=== PATIENT | female | born 1970 | race American Indian/Alaskan Native ===

== ENCOUNTER 2018-01-19 05:47 | Day surgery (SDC) | payer MEDICARE ==
[2018-01-19] MEDS ORDERED: WATER FOR IRRIG STERILE IR ONE (07:16)
[2018-01-19] MEDS ORDERED: HURRICAINE ONE 20% TOPICAL SPRAY MM (07:45)
--- NOTE | 2018-01-19 07:48 | Anesthesia Day of Surgery ---
Anesthesia Day of Surgery - Day of Surgery Patient Examined: Yes Patient H&P Reviewed: Yes Patient is NPO: Yes
--- NOTE | 2018-01-19 07:48 | Anesthesia Consultation ---
Anesthesia Consult and Med Hx Date of service: 01/19/18 - Airway Anesthetic Teeth Evaluation: Good ROM Head & Neck: Adequate Mental/Hyoid Distance: Adequate Mallampati Class: Class II Intubation Access Assessment: Probably Good - Pulmonary Exam CTA: Yes - Cardiac Exam Cardiac Exam: RRR - Pre-Operative Health Status ASA Pre-Surgery Classification: ASA3 Proposed Anesthetic Plan: MAC - Pulmonary Hx Sleep Apnea: Yes - Gastrointestinal Hx Gastroesophageal Reflux Disease: Yes - Other Systems Hx Cancer: Yes (NON [place]) Hx Obesity: Yes - Additional Comments Anesthesia Medical History Comments: Lupus, RA
[2018-01-19] MEDS ORDERED: NACL 0.9% 1000 ML 1,000 ML IV SCH (08:00)
[2018-01-19] MEDS ORDERED: DIPRIVAN 10 MG/ML IV ONE (08:05)
[2018-01-19] MEDS ORDERED: XYLOCAINE 2% INFILTRATI ONE (08:06)
--- NOTE | 2018-01-19 11:32 | Post Anesthesia Evaluation ---
- Post Anesthesia Evaluation Patient Participated: Yes Airway Patent: Yes Stable Respiratory Function: Yes Nausea/Vomiting: No Temp > 96.8F: Yes Pain Manageable: Yes Adequeate Hydration: Yes Anesthesia Complications: No
[2018-01-19 13:18] VITALS: BP 161/98
== END 2018-01-19 05:48 | disposition home or self-care (01) ==
LOC: GIO 05:47
PROVIDERS: ATTEND Specialist
DX: K21.0 Gastro-esophageal reflux disease with esophagitis (principal); K44.9 Diaphragmatic hernia without obstruction or gangrene; K31.89 Other diseases of stomach and duodenum; E66.01 Morbid (severe) obesity due to excess calories; G47.33 Obstructive sleep apnea (adult) (pediatric); M06.9 Rheumatoid arthritis, unspecified; Z88.2 Allergy status to sulfonamides; Z85.72 Personal history of non-Hodgkin lymphomas; Z91.048 Other nonmedicinal substance allergy status; M32.9 Systemic lupus erythematosus, unspecified; Z68.42 Body mass index [BMI] 45.0-49.9, adult
CPT/HCPCS: 43235; J2704; J7030

== ENCOUNTER 2018-07-16 12:00 | Inpatient (IN) | payer MEDICARE ==
--- NOTE | 2018-07-16 12:22 | Anesthesia Consultation ---
Anesthesia Consult and Med Hx Date of service: 07/16/18 - Airway Anesthetic Teeth Evaluation: Good ROM Head & Neck: Adequate Mental/Hyoid Distance: Adequate Mallampati Class: Class II Intubation Access Assessment: Probably Good - Pulmonary Exam CTA: Yes - Cardiac Exam Cardiac Exam: RRR - Pre-Operative Health Status ASA Pre-Surgery Classification: ASA3 Proposed Anesthetic Plan: General - Pulmonary Hx Pneumonia: Yes (HX) Hx Sleep Apnea: Yes (MILD NO CPAP NEEDED) - Cardiovascular System Hx Hypertension: Yes (OCT 2017. HL) - Central Nervous System Hx Back Pain: Yes - Gastrointestinal Hx Gastroesophageal Reflux Disease: Yes - Hematic Hx Anemia: Yes - Other Systems Hx Cancer: Yes Hx Obesity: Yes (Morbid obesity) - Additional Comments Anesthesia Medical History Comments: Lupus, chronic back pain, diverticulitis. Cardiac clearance on chart.
[2018-07-19] MEDS ORDERED: REGLAN IV PRN (16:05)
[2018-07-19] MEDS ORDERED: MORPHINE IV PRN (16:05)
[2018-07-19] MEDS ORDERED: APRESOLINE IV PRN (16:05)
[2018-07-19] MEDS ORDERED: MYLICON PO PRN (16:05)
[2018-07-19] MEDS ORDERED: NORCO PO PRN (16:05)
[2018-07-19] MEDS ORDERED: FLAGYL 500 MG/100 ML 500 MG/100 ML BAG IV NR (17:00)
[2018-07-19] MEDS ORDERED: ANCEF/STERILE WATER 2 GM/20 ML 2 GM/20 ML SYRINGE IV NR (17:00)
[2018-07-19] MEDS ORDERED: TRANSDERM-SCOP TD SCH (17:00)
[2018-07-19] MEDS ORDERED: LOVENOX SUB-Q NR (17:00)
[2018-07-20] MEDS ORDERED: WATER FOR IRRIG STERILE IR ONE (07:35)
[2018-07-20] MEDS: LACTATED RINGERS 1,000 ML IV SCH ×3 (08:26→21:11)
[2018-07-20 08:53] LABS: Bilirubin,Urine NEG (Negative); Blood,Urine NEG (Negative); Color,Urine Yellow (Yellow); Protein,Urine <15 mg/dL mg/dL (Negative); Urobilinogen,Urine < 2.0 mg/dL (<2.0)
[2018-07-20] MEDS ORDERED: PEPCID IV NR (09:00)
[2018-07-20] MEDS ORDERED: ANCEF/STERILE WATER 2 GM/20 ML IV NR (09:00)
[2018-07-20] MEDS ORDERED: VERSED IV NR (09:00)
--- NOTE | 2018-07-20 09:27 | Anesthesia Day of Surgery ---
Anesthesia Day of Surgery - Day of Surgery Patient Examined: Yes Patient H&P Reviewed: Yes Patient is NPO: Yes
[2018-07-20] MEDS ORDERED: XYLOCAINE MPF 2% ONE (09:44)
[2018-07-20] MEDS ORDERED: DIPRIVAN 10 MG/ML IV ONE (09:45)
[2018-07-20] MEDS ORDERED: SUBLIMAZE ONE (09:45)
[2018-07-20] MEDS ORDERED: NACL 0.9% IR ONE (10:10)
[2018-07-20] MEDS ORDERED: XYLOCAINE 1% 20 mL INFILTRATI ONE (10:10)
[2018-07-20] MEDS ORDERED: MARCAINE-EPI 0.5%-1:200,000 INFILTRATI ONE ×2 (10:10→10:33)
[2018-07-20] MEDS ORDERED: ZOFRAN ONE (10:29)
[2018-07-20] MEDS ORDERED: DECADRON ONE (10:29)
[2018-07-20] MEDS ORDERED: TORADOL ONE (10:30)
[2018-07-20] MEDS ORDERED: BLOXIVERZ ONE (10:30)
[2018-07-20] MEDS ORDERED: QUELICIN ONE (10:30)
[2018-07-20] MEDS ORDERED: ZEMURON IV ONE (10:30)
[2018-07-20] MEDS ORDERED: ROBINUL ONE (10:30)
[2018-07-20] MEDS ORDERED: XYLOCAINE 1% 20 mL ONE (10:33)
[2018-07-20] MEDS ORDERED: ZOFRAN IV PRN (12:52)
--- NOTE | 2018-07-20 13:23 | Operative Report ---
Operative Report Operative Report: OPERATIVE REPORT DATE OF PROCEDURE: 07/20/18 SURGEON: Smooth Henry MD; Vane Dennis MD LABORATORY SUPERVISOR: Yousuf Narvaez CSA PREOPERATIVE DIAGNOSES: 1. Enterogastric reflux 2. Failed or complication of gastrojejunal anastomosis 3. Chronic dyspepsia POSTOPERATIVE DIAGNOSES: Same PROCEDURES PERFORMED: 1. Laparoscopic revision of gastrojejunostomy 2. Biliopancreatic limb lengthening 3. Intraoperative endoscopy 4. Adhesiolysis ANESTHESIA: General. SPECIMENS: None. ESTIMATED BLOOD LOSS: Less than 20 mL. COMPLICATIONS: None. FINDINGS: 1. Adhesions in the pelvis from her prior . 2. Dilated gastric pouch. INDICATION: Patient is a 47 year old female who had a gastric bypass in 2007 and has since began to experience abdominal pain, chronic dyspepsia and weight regain. A recently performed EGD showed the patient had dilation of the gastrojejunostomy and gastric pouch indicating failure. She wished to undergo revision. The risks, complications, and alternatives were explained, and informed consent was obtained. DESCRIPTION OF PROCEDURE: The patient was brought to the operating suite and laid in the supine position. She was given preoperative antibiotics and DVT prophylaxis. General anesthesia was induced and she was prepped and draped in the usual sterile fashion. A time out was called. A small incision was made at the base of the umbilicus and a veress needle was inserted. I could not obtain appropriate insufflation pressures, therefore the Veress was changed to the LUQ with appropriate insufflation pressures of 15 mmHg. A 12mm Optiview trocar was inserted at the umbilicus. No gross injury to any abdominal structures were noted below the site of entry and at the Veress site. An additional 12mm trocar was placed in the right lateral quadrant and two 5 mm ports in the epigastric and right upper quadrant. An additional 5mm trocar was placed in the left upper quadrant. She had an antecolic, antegastric anatomy. We ran the bowel multiple times to ensure we had the appropriate limbs prior to stapling. The florentino limb was identified and then stapled just prior to the biliopancreatic limb at the J-J anastomosis. Hemostasis was obtained with electrocautery. Next the terminal ileum was identified. She had dense adhesions from a prior pelvic operation, and we spent some time lysing adhesions first. The small bowel was then run proximally for about 400cm, marked and then brought up the previously transected florentino-limb. A new side to side anastomosis was created with a white linear stapler load. Next, a liver retractor was placed and the patient was repositioned in steep reverse [place]berg. There was no hiatal hernia. Using the hook cautery the gastric pouch was from the remnant stomach. Using an endoscope, the gastrojejunostomy was visualized. The pouch was noted to be large and was decreased in size by stapling via a blue load at the lateral portion of the pouch. The lateral portion was imbricated with a 2-0 V-loc to decrease the size of the gastrojejunostomy to 10 mm. The scope passed easily through the new anastomosis to the florentino limb. The air was suctioned from the pouch and florentino limb prior to removing the endoscope. The abdomen was desufflated and all trocars. The umbilical fascia was closed with a #1 PDS. The skin incisions were closed with 4-0 Monocryl; sterile bandages and tape were placed overtop. Patient was awoken and taken to recovery in stable condition. Counts were correct.
[2018-07-20] MEDS: ZOFRAN IV PRN ×2 (14:18→21:03)
[2018-07-20] MEDS: DILAUDID IV PRN ×2 (14:18→21:03)
[2018-07-20] MEDS: PEPCID PO SCH (21:11)
[2018-07-21] MEDS: DILAUDID IV PRN (02:10)
[2018-07-21] MEDS: LACTATED RINGERS 1,000 ML IV SCH (03:16)
[2018-07-21 05:14] LABS: Basophils % (Auto) 0.2 % (0.0-1.8); Eosinophils % (Auto) 0.1 % (0.0-4.3); Hematocrit 34.7 % (30.3-42.9); Hemoglobin 11.3 gm/dl (10.1-14.3); Lymphocytes # (Auto) 0.5 K/mm3 (1.2-5.4); Lymphocytes % (Auto) 9.1 % (13.4-35.0); Mean Corpuscular HGB Conc 33 % (30-34); Mean Corpuscular Hemoglobin 27 pg (28-32); Mean Corpuscular Volume 83 fl (79-97); Monocytes # (Auto) 0.6 K/mm3 (0.0-0.8); Platelet Count 210 K/mm3 (140-440); Red Blood Count 4.19 M/mm3 (3.65-5.03); Red Cell Distribution Width 15.6 % (13.2-15.2)
[2018-07-21 05:28] LABS: BUN/Creatinine Ratio 15; Blood Urea Nitrogen 12 mg/dL (7-17); Calcium 8.4 mg/dL (8.4-10.2); Hemolysis Index 0
--- NOTE | 2018-07-21 07:12 | Progress Note ---
Assessment and Plan 47F severe dyspepsia sp Lap GJ revision, BP lengthening 07/20/18 #1 sp Lap GJ revision, BP lengthen - resume home meds - bariatric CLD - ambulate - IS use - pain control - discussed postop meds and care in detail - all Rx given at preop visit Subjective Date of service: 07/21/18 Interval history: No acute events overnight. Did well. Tolerated a CLD. Ambulated. Pain well controll.ed Objective - Exam Narrative Exam: GEN: AAO, NAD HEENT: Anicteric HEART: RRR LUNGS: CTAB, no wheezes/rales ABD: MO, soft, NT, ND, bandages c/d/i EXT: no LE edema - Constitutional Vitals: Vital Signs - 12hr 07/20/18 07/20/18 20:28 23:59 Temperature 99.3 F 97.5 F L Pulse Rate 100 H 75 Respiratory 20 20 Rate Blood Pressure 153/92 100/52 O2 Sat by Pulse 95 95 Oximetry - Labs CBC & Chem 7: 07/21/18 04:19 07/21/18 04:19 Labs: Abnormal lab results 07/21/18 07/21/18 Range/Units 04:19 04:19 MCH 27 L (28-32) pg RDW 15.6 H (13.2-15.2) % Lymph % (Auto) 9.1 L (13.4-35.0) % [place]ferro % (Auto) 11.0 H (0.0-7.3) % Lymph # 0.5 L (1.2-5.4) K/mm3 Seg Neutrophils % 79.6 H (40.0-70.0) % Glucose 108 H (65-100) mg/dL
--- NOTE | 2018-07-21 07:15 | Discharge Summary ---
Providers - Providers Date of Admission: 07/20/18 06:35 Date of discharge: 07/21/18 Attending physician: GIOVANNY HENRY Primary care physician: PROGRAM SUPERVISOR Hospitalization Reason for admission: postop care Condition: Good Procedures: 07/20/18: Lap GJ revision, BP lengthening Hospital course: 47F admitted for routine postop monitoring. Did well with no issues. Toelrated a bariatric CLD, ambulated with pain under cnotrol. She was dc home POD#1 in stable conditoin. Disposition: DC-01 TO HOME OR SELFCARE Core Measure Documentation - Palliative Care Palliative Care/ Comfort Measures: Not Applicable - Core Measures Any of the following diagnoses?: none - VTE Discharge Requirements Deep Vein Thrombosis/Pulmonary Embolism Present on Admission: No - Acute [place] Discharge Requirements Aspirin at discharge: No Reason for no aspirin on DC: Surgical contraindication - Heart Failure Discharge Requirements NIKKIE/ARB for LVSD if EF <40%: Not Applicable - Stroke Discharge Requirements Statin for LDL = or >70 mg/dl on DC: Not Applicable Exam - Physical Exam Narrative exam: GEN: AAO, NAD HEENT: Anicteric HEART: RRR LUNGS: CTAB, no wheezes/rales ABD: MO, soft, NT, ND, bandages c/d/i EXT: no LE edema - Constitutional Vitals: Temp Pulse Resp BP Pulse Ox 97.5 F L 75 20 100/52 95 07/20/18 23:59 07/20/18 23:59 07/20/18 23:59 07/20/18 23:59 07/20/18 23:59 Plan Diet: other (bariatric CLD) Wound: keep clean and dry Additional Instructions: f/u Dr Henry as scheduled Follow up with: PRIMARY CAREMD [Primary Care Provider] - 7 Days
[2018-07-21] MEDS: ZOFRAN IV PRN (09:05)
[2018-07-21] MEDS: PEPCID PO SCH (09:09)
[2018-07-21] MEDS ORDERED: COZAAR PO SCH (10:00)
[2018-07-21] MEDS ORDERED: LOVENOX SUB-Q SCH (10:00)
[2018-07-21] MEDS ORDERED: PLAQUENIL PO SCH (10:00)
[2018-07-21] MEDS ORDERED: PROTONIX PO SCH (10:00)
[2018-07-21 12:34] VITALS: BP 134/76
== END 2018-07-21 13:40 | disposition home or self-care (01) | DRG 327 ==
LOC: 3A 07-20 06:35 → 3B-SURG 07-20 13:32
PROVIDERS: ADMIT Specialist; ATTEND Specialist
PROC: 0D164ZA Bypass Stomach to Jejunum, Percutaneous Endoscopic Approach (ICD-10-PCS; principal; 2018-07-20)
PROC: 0DN84ZZ Release Small Intestine, Percutaneous Endoscopic Approach (ICD-10-PCS; 2018-07-20)
DX: K95.89 Other complications of other bariatric procedure (principal); Z68.42 Body mass index [BMI] 45.0-49.9, adult; Z71.3 Dietary counseling and surveillance; E66.01 Morbid (severe) obesity due to excess calories; G47.30 Sleep apnea, unspecified; K21.9 Gastro-esophageal reflux disease without esophagitis; K66.0 Peritoneal adhesions (postprocedural) (postinfection); Y83.2 Surgical operation with anastomosis, bypass or graft as the cause of abnormal reaction of the patient, or of later complication, without mention of misadventure at the time of the procedure; Y92.89 Other specified places as the place of occurrence of the external cause; Z90.89 Acquired absence of other organs; Z90.710 Acquired absence of both cervix and uterus; Z80.9 Family history of malignant neoplasm, unspecified; Z83.3 Family history of diabetes mellitus; Z82.49 Family history of ischemic heart disease and other diseases of the circulatory system
CPT/HCPCS: 36415; 80048; 81001; 85025; 88307; J0330; J0690; J1100; J1170; J1650; J1885; J2250; J2270; J2405; J2704; J2710; J2765; J3010; J7120